=== PATIENT | female | born 1995 | race Caucasian/White ===

== ENCOUNTER 2018-02-01 06:24 | Emergency (ER) | payer OTHER, SELFPAY ==
[2018-02-01 06:34] VITALS: BP 126/87; PULSE 103; RESP 16; TEMP 36.9; O2SAT 95
[2018-02-01 06:38] VITALS: BP 126/87; PULSE 103; RESP 16; TEMP 36.9; O2SAT 95; BMI 34.5
[2018-02-01 07:12] LABS: Add Manual Diff / Slide Review NO; Basophils Percent Auto 0.3 % (0-2); Hematocrit 42.7 % (36-46); Hemoglobin 14.6 g/dL (12.0-16.0); Lymphocytes Percent Auto 9.1 % (25-40); Mean Corpuscular HGB Conc 34.2 % (30-36); Mean Corpuscular Hemoglobin 28.4 PG (26-34); Mean Corpuscular Volume 83.1 fL (80-100); Monocytes Percent Auto 4.9 % (3-14); Neutrophils Absolute Auto 6900 /uL (3000-5900); Neutrophils Percent Auto 85.7 % (50-75); Platelet Count 351 X10^3/uL (150-400); Red Blood Cell Count 5.14 X10^6/uL (4.0-5.2); Red Cell Distribution Width 13.6 % (11.6-14.8)
[2018-02-01] MEDS: ONDANSETRON 4 MG/2 ML INJ IV (07:15)
[2018-02-01 07:18] LABS: INR 1.2 (0.9-1.3); Prothrombin Time 13.3 SECONDS (10.1-12.7)
[2018-02-01 07:20] LABS: PTT Partial Thromboplastin Tim 25 SECONDS (26.4-36.2)
[2018-02-01 07:23] LABS: Alanine Aminotransferase 35 IU/L (9-52); Albumin 4.6 g/dL (3.5-5.0); Albumin Globulin Ratio 1.4 (1.0-2.8); Alkaline Phosphatase 84 U/L (38-126); Aspartate Aminotransferase 24 IU/L (14-36); BUN Creatinine Ratio 25.7 (6-22); Bilirubin Total 0.5 mg/dL (0.2-1.3); Blood Urea Nitrogen 18 mg/dL (7-17); Calcium 9.1 mg/dL (8.4-10.2); Carbon Dioxide 24 mmol/L (22-32); Chloride 104 mmol/L (98-107); Estimated Glomerular Filt Rate > 60.0 mL/min (>60); Globulin 3.3 g/dL (1.7-4.1); Glucose 198 mg/dL (70-100); HEMOLYSIS < 15 (0-50); Lipase 41 U/L (23-300); Potassium 4.1 mmol/L (3.4-5.1); Sodium 144 mmol/L (137-145); Total Protein 7.9 g/dL (6.3-8.2)
--- NOTE | 2018-02-01 07:29 | ED.NAVMDI ---
HPI - Nausea/Vomiting/Diarrhea General Chief complaint: Nausea/Vomiting/Diarrhea Stated complaint: hurts to breath, has bad cough, vomiting Time Seen by Provider: 02/01/18 06:56 Source: patient Mode of arrival: ambulatory Limitations: no limitations History of Present Illness HPI Narrative: Patient is a 22-year-old female who presents with cough, chest discomfort, vomiting diarrhea. She has actually seen evaluated yesterday at [facility] she had a negative influenza test discharged at 9:00 p.m. she was unable to fill her nausea medication prescription she started vomiting again this morning at 5:00 p.m. and came here. She says she has fever of 100.4. For the last couple of days. She is currently afebrile here. She overall has body aches and fatigue. She says she has had numerous amounts of diarrhea and vomiting. She does get some shortness of breath when she walks. MD complaint: nausea, vomiting and diarrhea Onset (ago): day(s) Description of Vomiting: watery and bilious Description of Diarrhea: watery Severity: mild Related Data Previous Rx's Medication Instructions Recorded azelastine 137 mcg (0.1 %) nasal 1 spray NASAL BID 30 Days #30 ml 10/15/17 spray aerosol budesonide 32 mcg/actuation nasal 1 spray NASAL Q12H 30 Days #5 ml 10/15/17 spray sulfamethoxazole-trimethoprim 1 tab PO BID 5 Days #10 tab 02/01/18 [Bactrim DS] Allergies Allergy/AdvReac Type Severity Reaction Status Date / Time No Known Drug Allergies Allergy Unverified 10/15/17 16:31 Review of Systems Review of Systems All systems reviewed & are unremarkable except as noted in HPI and below Constitutional Reports body ache(s), Reports chills, Reports fatigue and Reports fever(s) Eyes Denies change in vision, Denies eye discharge, Denies irritation and Denies loss of vision ENT Ears, Nose, Mouth, and Throat: Denies change in voice, Denies neck pain and Denies sore throat Cardiovascular Denies chest pain, Denies irregular heart rhythm, Denies lightheadedness, Denies palpitations and Denies orthopnea Respiratory Reports chest congestion, Reports cough and Denies wheezing Gastrointestinal Gastrointestinal: Reports as per HPI Genitourinary Denies hematuria, Denies flank pain, Denies urinary incontinence and Denies urinary urgency Musculoskeletal Denies deformity, Denies neck pain and Denies numbness Integumentary/Breasts Denies pruritus, Denies erythema, Denies rash and Denies wounds Neurologic Denies loss of vision and Denies numbness Endocrine Reports fatigue and Denies palpitations Allergic/Immunologic Denies wheezing PFSH Medical History Diabetes (Acute) Social History Smoking Status: Former smoker alcohol intake: never Exam Initial Vital Signs Initial Vital Signs: Vital Signs Temperature 98.5 F 02/01/18 06:34 Pulse Rate 103 H 02/01/18 06:34 Respiratory Rate 16 02/01/18 06:34 Blood Pressure 126/87 02/01/18 06:34 Pulse Oximetry 95 02/01/18 06:34 GENERAL: Overweight young female no acute distress HEENT: Head atraumatic,EOMI, pupils reactive, face symmetric, moist mucous membranes CARDIOVASCULAR: Regular rate and rhythm without murmurs, rubs or gallops. RESPIRATORY: Breath sounds equal bilaterally, no wheezes rales or rhonchi. ABDOMEN: Soft, nontender. Normoactive bowel sounds all 4 quadrants. No guarding or rebound. : No CVA tenderness EXTREMITIES: Normal range of motion, no clubbing or edema. Neurovascularly intact NEUROLOGICAL: Alert and oriented x4.Normal gait and speech. SKIN: Warm, dry, no laceration, no petechiae, no rashes or lesions. Course Orders Ordered: ED Orders 02/01/18 07:38 XR chest 2V Stat 02/01/18 08:50 Urine Microscopic Stat Discontinued Medications Sodium Chloride (Normal Saline 0.9%) 1,000 mls @ 1,000 mls/hr IV BOLUS ONE Stop: 02/01/18 08:37 Last Infusion: 02/01/18 09:09 Dose: 0 mls/hr Admin: 02/01/18 07:58 Dose: 1,000 mls/hr Ondansetron HCl (Zofran) 4 mg IV NOW ONE Stop: 02/01/18 06:57 Last Admin: 02/01/18 07:15 Dose: 4 mg Pantoprazole Sodium (Protonix) 40 mg IV NOW ONE Stop: 02/01/18 07:39 Last Admin: 02/01/18 07:58 Dose: 40 mg Vital Signs - 8 hr 02/01/18 08:49 Pulse Rate 81 Blood Pressure [Left Arm] 117/72 Pulse Oximetry 99 MDM - Nausea/Vomiting/Diarrhea Lab Data Attestation: I reviewed the patient's lab results. Result diagrams: 02/01/18 07:00 02/01/18 07:00 Lab Results 02/01/18 02/01/18 02/01/18 Range/Units 07:00 07:00 07:00 WBC 8.0 (4.5-11.0) X10^3/uL RBC 5.14 (4.0-5.2) X10^6/uL Hgb 14.6 (12.0-16.0) g/dL Hct 42.7 (36-46) % MCV 83.1 (80-100) fL MCH 28.4 (26-34) PG MCHC 34.2 (30-36) % RDW 13.6 (11.6-14.8) % Plt Count 351 (150-400) X10^3/uL Neut % (Auto) 85.7 H (50-75) % Lymph % (Auto) 9.1 L (25-40) % [place] % (Auto) 4.9 (3-14) % Eos % (Auto) 0.0 L (2-4) % Baso % (Auto) 0.3 (0-2) % Neut # (Auto) 6900 H (3196-9207) /uL PT 13.3 H (10.1-12.7) SECONDS INR 1.2 (0.9-1.3) APTT 25 L (26.4-36.2) SECONDS Sodium 144 (137-145) mmol/L Potassium 4.1 (3.4-5.1) mmol/L Chloride 104 (98-107) mmol/L Carbon Dioxide 24 (22-32) mmol/L BUN 18 H (7-17) mg/dL Creatinine 0.70 (0.52-1.04) mg/dL Estimated GFR > 60.0 (>60) mL/min BUN/Creatinine Ratio 25.7 H (6-22) Glucose 198 H (70-100) mg/dL Calcium 9.1 (8.4-10.2) mg/dL Total Bilirubin 0.5 (0.2-1.3) mg/dL AST 24 (14-36) IU/L ALT 35 (9-52) IU/L Alkaline Phosphatase 84 (38-126) U/L Total Protein 7.9 (6.3-8.2) g/dL Albumin 4.6 (3.5-5.0) g/dL Globulin 3.3 (1.7-4.1) g/dL Albumin/Globulin Ratio 1.4 (1.0-2.8) Lipase 41 (23-300) U/L Urine RBC (0-5/HPF) Urine WBC (0-5/HPF) Amorphous Sediment Urine Bacteria (None) Ur Culture Indicated? Micro UA Comment 02/01/18 Range/Units 08:50 WBC (4.5-11.0) X10^3/uL RBC (4.0-5.2) X10^6/uL Hgb (12.0-16.0) g/dL Hct (36-46) % MCV (80-100) fL MCH (26-34) PG MCHC (30-36) % RDW (11.6-14.8) % Plt Count (150-400) X10^3/uL Neut % (Auto) (50-75) % Lymph % (Auto) (25-40) % [place] % (Auto) (3-14) % Eos % (Auto) (2-4) % Baso % (Auto) (0-2) % Neut # (Auto) (0397-5036) /uL PT (10.1-12.7) SECONDS INR (0.9-1.3) APTT (26.4-36.2) SECONDS Sodium (137-145) mmol/L Potassium (3.4-5.1) mmol/L Chloride (98-107) mmol/L Carbon Dioxide (22-32) mmol/L BUN (7-17) mg/dL Creatinine (0.52-1.04) mg/dL Estimated GFR (>60) mL/min BUN/Creatinine Ratio (6-22) Glucose (70-100) mg/dL Calcium (8.4-10.2) mg/dL Total Bilirubin (0.2-1.3) mg/dL AST (14-36) IU/L ALT (9-52) IU/L Alkaline Phosphatase (38-126) U/L Total Protein (6.3-8.2) g/dL Albumin (3.5-5.0) g/dL Globulin (1.7-4.1) g/dL Albumin/Globulin Ratio (1.0-2.8) Lipase (23-300) U/L Urine RBC None seen (0-5/HPF) Urine WBC None seen (0-5/HPF) Amorphous Sediment 4+ Urine Bacteria Moderate (10-30) H (None) Ur Culture Indicated? Specimen cultured Micro UA Comment Not Reportable Point of Care Testing Test Results Negative Urine Dip Bedside Urine Glucose 500 mg/dl Bedside Urine Bilirubin - Negative Bedside Urine Ketone - Negative Urine Specific [place] 1.030 Bedside Urine Occult Blood - Negative Bedside Urine pH 6.0 Bedside Urine Protein +/- 15 Bedside Urine Urobilinogen - Negative Bedside Urine Nitrite + Positive Bedside Urine Leukocytes - Negative Esterase MDM Narrative Medical decision making narrative: The patient appears nontoxic she is overall feeling better. She has a prescription for Zofran which she needs to fill today. Discharge Plan Departure Patient Disposition: Home Clinical Impression: Gastroenteritis, UTI (urinary tract infection) Discharge Date/Time: 02/01/18 09:11 Interventions: ED Discharge Assessment Last Done: 02/01/18 09:11 Instructions: DI for Viral Gastroenteritis -- Adult Activity Restrictions/Additional Instructions: 1) You have been diagnosed with gastroenteritis, UTI 2) What to do: Drink frequent but small amounts of fluids. I recommend Gatorade or a Gatorade-like product, as it has small amounts of sugar and salts that improve fluid retention. 3) Take medications as directed-FILL YOUR PRESCRIPTION -BACTRIM 1 PILL TWICE A DAY FOR UTI FOR 5 DAYS 4) Follow up with your primary care provider in 2-3 days 5) Return to ER if you should have any new or worsening symptoms such as, unable to hold down fluids despite use of anti-nausea medications and the small volume oral rehydration strategy. Prescriptions: New sulfamethoxazole-trimethoprim [Bactrim DS] 800-160 mg tablet 1 tab PO BID 5 Days Qty: 10 RF: 0 No Action budesonide [Rhinocort Allergy] 32 mcg/actuation spray,non-aerosol 1 spray NASAL Q12H 30 Days Qty: 5 RF: 3 azelastine 137 mcg (0.1 %) aerosol,spray 1 spray NASAL BID 30 Days Qty: 30 RF: 3 Referrals: [facility] [Outside]
[2018-02-01 07:33] VITALS: BP 125/88; PULSE 90; RESP 17; O2SAT 100
--- NOTE | 2018-02-01 07:38 | DI.RAD.S_ITS ---
PROCEDURE: XR CHEST 2V INDICATIONS: cough chest pain TECHNIQUE: 2 views of the chest were acquired. COMPARISON: None. FINDINGS: Surgical changes and devices: None. Lungs and pleura: No pleural effusions or pneumothorax. Lungs are clear. Mediastinum: Mediastinal contours are normal. Heart size is mildly enlarged. Bones and chest wall: No suspicious bony abnormalities. Soft tissues appear unremarkable. IMPRESSION: No acute cardiopulmonary pathology. Dictated by: Burke Hayden M.D. on 02/01/2018 at 8:42 Approved by: Burke Hayden M.D. on 02/01/2018 at 8:44
[2018-02-01] MEDS: SODIUM CHLORIDE 0.9% 1,000 ML 1000 ML IV (07:58)
[2018-02-01] MEDS: PANTOPRAZOLE 40 MG VIAL IV (07:58)
[2018-02-01 08:00] VITALS: BP 125/63; PULSE 77; O2SAT 99
[2018-02-01 08:49] VITALS: BP 117/72; PULSE 81; O2SAT 99
[2018-02-01 08:51] LABS: RBC Urine None Seen (0-5/HPF); WBC Urine None Seen (0-5/HPF)
[2018-02-01 09:00] LABS: Amorphous Sediment Urine 4+; Bacteria Urine Moderate (10-30); Culture Indicated Urine Specimen Cultured
== END 2018-02-01 09:11 | disposition home or self-care (01) ==
PROVIDERS: Emergency Medicine; Emergency Provider Emergency Medicine
DX: K52.9 Noninfective gastroenteritis and colitis, unspecified (principal); N39.0 Urinary tract infection, site not specified
CPT/HCPCS: 71046; 80053; 81003; 81015; 81025; 83690; 85025; 85610; 85730; 87077; 87086; 87186; 96361; 96374; 96375; 99283; 99284; C9113; J2405

== ENCOUNTER 2018-07-14 13:15 | Emergency (ER) | payer OTHER, SELFPAY ==
[2018-07-14 13:22] VITALS: BP 135/90; PULSE 82; RESP 15; TEMP 36.8; O2SAT 99; BMI 35.4
== END 2018-07-14 14:00 | disposition left against medical advice (07) ==
PROVIDERS: Emergency Provider Emergency Medicine
DX: R20.0 Anesthesia of skin (principal); Z53.20 Procedure and treatment not carried out because of patient's decision for unspecified reasons
CPT/HCPCS: 82962; 99281

== ENCOUNTER 2019-08-21 21:42 | Outpatient (CLI) | payer OTHER, SELFPAY ==
--- NOTE | 2019-08-21 22:21 | P.TNLD_ITS ---
Visit Information Visit Information Date of evaluation: 08/21/19 On-call OB Provider: Kathleen Dominguez Reason for Evaluation: Yes rupture of membranes Comments/Additional reasons for admission: 23YO @ 31wks based on early US here for evaluation of suspected PPROM. Noticed her underwear were wet after grocery shopping around 1730 tonight. Has changed damp underwear twice since then. Has also noticed rare mild cramping that started around the same time. +FM. No VB. [place] to [facility] for insulin dependent GDMA2. Vital Signs Vital Signs: BP 111/76, HR 98bpm, RR18, T97.7F Temporal [facility] Medical History (Updated 08/21/19 @ 22:28 by Kathleen Dominguez CNM) Diabetes (Acute) Social History Smoking Status: Former smoker alcohol intake: never Review of Systems Review of Systems ROS: Yes All systems reviewed with the patient and are negative except as otherwise documented Exam Vital Signs (past 8 hours): see above Evaluation Evaluation Baseline heart rate: 150 Variability: Moderate (11-25) monitor accelerations: Present monitor decelerations: Absent Contraction Frequency (minutes): 0 Category of Tracing: I Non-invasive Membranes Rupture Test: negative Comments: No contractions on toco or felt by patient while in triage. CE not indicated. Diagnosis, Plan/Disposition Final Diagnosis (1) Gestational diabetes mellitus in , insulin controlled: Status: Acute (2) Obesity (BMI 35.0-39.9 without comorbidity): Status: Acute (3) History of PCOS: Status: Acute Plan/Disposition Plan: [facility] signed and records requested, but no response during triage visit. Discharge to home with routine precautions. Patient was unable to void until end of visit, will send UA and call if abnormal. Routine precautions. Follow-u p w/ new provider at [facility] @ 32wks as scheduled. OB Disposition: home
[2019-08-22 00:02] LABS: Appearance Urine UA CLEAR; Bilirubin Urine UA NEGATIVE (NEGATIVE); Color Urine UA YELLOW; Glucose Urine UA NEGATIVE (Negative); Ketones Urine UA NEGATIVE (NEGATIVE); Leukocyte Esterase Urine UA NEGATIVE (NEGATIVE); Nitrite Urine UA NEGATIVE (Negative); Occult Blood Urine UA NEGATIVE (Negative); Protein Urine UA NEGATIVE (Negative); RBC Urine None Seen (0-5/HPF); Urobilinogen Urine UA 0.2 E.U./dL (0.2); WBC Urine None Seen (0-5/HPF)
[2019-08-22 00:03] LABS: Bacteria Urine Few (2-10); Culture Indicated Urine Cult Not Indicated; Squamous Epithelial Cell Urine 1-5 /HPF (0-5/HPF)
== END 2019-08-21 22:48 | disposition home or self-care (01) ==
LOC: OB 08-27 10:44
PROVIDERS: Referring Provider Nurse Practitioner Obstetrics & Gynecology; Visit Provider Nurse Practitioner Obstetrics & Gynecology
DX: O24.414 Gestational diabetes mellitus in pregnancy, insulin controlled (principal); O99.213 Obesity complicating pregnancy, third trimester; N89.8 Other specified noninflammatory disorders of vagina; Z87.42 Personal history of other diseases of the female genital tract; Z3A.31 31 weeks gestation of pregnancy
CPT/HCPCS: 59025; 81001; 84112; G0378; G0379